=== PATIENT | female | born 1995 | race African-American/Black ===

== ENCOUNTER 2020-10-20 12:38 | Outpatient (REF) | payer MEDICAID, SELFPAY ==
--- NOTE | 2020-10-20 12:50 | XR_ITS ---
EXAMINATION: XR RIBS, RIGHT CLINICAL INFORMATION: Localized swelling, mass and lump, COMPARISON: None TECHNIQUE: PA chest and 3 views of the right ribs. FINDINGS: There is scoliosis of the thoracic spine convex right. There is no evidence of acute parenchymal disease, pneumothorax, or pleural effusion. Heart normal size. No evidence of pulmonary edema. No acute displaced right rib fracture is evident. No destructive bony lesion is seen. XR/XR ribs RT min 3V w CXR1V IMPRESSION: No acute parenchymal disease within the chest. No right rib abnormality appreciated.
== END 2020-10-20 12:39 | disposition home or self-care (01) ==
LOC: HO.XRAY 12:38
PROVIDERS: PCP General Practice; Visit Provider General Practice
DX: R22.2 Localized swelling, mass and lump, trunk (principal)
CPT/HCPCS: 71101

== ENCOUNTER 2020-10-25 16:39 | Outpatient (REF) | payer MEDICAID, SELFPAY ==
--- NOTE | 2020-10-25 | US_ITS ---
EXAMINATION: ULTRASOUND EXTREMITY NONVASCULAR CLINICAL INFORMATION: Palpable lump COMPARISON: None TECHNIQUE: Grayscale and color imaging of the soft tissues of the right flank using a linear transducer FINDINGS: There is a 5.7 x 1.2 x 5.1 cm iso to hypoechoic solid lesion with no vascularity just deep to the skin corresponding to palpable abnormality. Ultrasound appearance is suggestive of a lipoma. US/US extremity nonvascular IMPRESSION: Probable right flank soft tissue lipoma. If this is painful or increasing in size, additional imaging with CT or MRI with contrast would be recommended.
== END 2020-10-25 16:40 | disposition home or self-care (01) ==
LOC: HO.US 16:39
PROVIDERS: Visit Provider General Practice
DX: R22.2 Localized swelling, mass and lump, trunk (principal)
CPT/HCPCS: 76882

== ENCOUNTER → 2021-01-17 13:55 | Outpatient (BNVA) | payer MEDICAID, SELFPAY | PROVIDERS: PCP General Practice; Visit Provider Surgery | DX: D17.1 Benign lipomatous neoplasm of skin and subcutaneous tissue of trunk (principal) | CPT/HCPCS: 99202 ==

== ENCOUNTER 2021-02-18 08:36 | Day surgery (SDC) | payer MEDICAID, SELFPAY ==
[2021-02-11 19:55] VITALS: BMI 26.2
--- NOTE | 2021-02-16 09:33 | P.CONAN_ITS ---
Documented by User: Denise Hernandez 02/16/21 09:34 HPI - Anesthesia Eval Consult details Narrative: 25yo F for Right Excision of Flank Lipoma PMFSH Active Problems Active Problems: All Active Problems (Updated 02/11/21 @ 19:54 by Ekta Chavarria RN) Lipoma of abdominal wall (Acute) Past Medical History Medical History GERD (gastroesophageal reflux disease) Lipoma of abdominal wall Scoliosis Surgical History Surgical History History of appendectomy [place] teeth extracted Social History Social History Alcohol intake: never Smoking Status: Never smoker Second Hand Smoke Exposure: No Use of substances other than those prescribed or required for medical reasons: No Are you DNR?: No Advance Directives: No Advance Directives Information Provided: No Advance Directives on File: No Recently lost weight without trying: No Nutrition Risks: No Nutritional Risk Meds Allergies Allergy/AdvReac Type Severity Reaction Status Date / Time clarithromycin [From BIAXIN] Allergy Unknown RASH Verified 02/18/21 08:54 Home Medications Medication Instructions Recorded Confirmed Last Taken Type No Known Home Meds 01/17/21 01/17/21 Unknown History Exam Exam Date and Time: February 16, 2021 0933 Height,Weight and Vital Signs: Height 4 ft 11 in Weight 58.967 kg Assessment and Plan Assessment Anesthesia Assessment: Chart Reviewed Documented by User: Rhianna Aguilar 02/18/21 09:37 PMFSH Past Medical History Medical History GERD (gastroesophageal reflux disease) Lipoma of abdominal wall Scoliosis Surgical History Surgical History History of appendectomy [place] teeth extracted Social History Social History Alcohol intake: never Smoking Status: Never smoker Second Hand Smoke Exposure: No Use of substances other than those prescribed or required for medical reasons: No Are you DNR?: No Advance Directives: No Advance Directives Information Provided: No Advance Directives on File: No Recently lost weight without trying: No Nutrition Risks: No Nutritional Risk Meds Allergies Allergy/AdvReac Type Severity Reaction Status Date / Time clarithromycin [From BIAXIN] Allergy Unknown RASH Verified 02/18/21 08:54 Home Medications Medication Instructions Recorded Confirmed Last Taken Type No Known Home Meds 01/17/21 01/17/21 Unknown History Exam Airway Mallampati Class: II TM Dist: >3cm Neck ROM: Full Assessment and Plan Assessment Anesthesia Assessment: Anesthesia Plan Discussed and Chart Reviewed Final Anesthetic Review NPO: Yes ASA Class: II Final Preanesthetic Review: No Changes in Pt Med Stat, Meds/Allgs Chart Reviewed, Consent Obtained/Reviewed and Anes Risks/Benef Reviewed Patient Risk: Low Procedure Risk: Low Assessment/Block/Sedation in SS: Assess/Block/Sedation-SS Anesthetic Plan Anesthetic Plan: MAC: Disposition: Standard PACU
[2021-02-18 08:55] VITALS: BP 108/67; PULSE 72; RESP 16; TEMP 36.9; O2SAT 97
[2021-02-18 09:02] LABS: UPreg QC Valid YES; Urine Pregnancy NEGATIVE (NEGATIVE)
[2021-02-18] MEDS: Lactated Ringers 1,000 ML 100 ML IVCONT (09:11)
--- NOTE | 2021-02-18 10:40 | P.OP_ITS ---
Operative Note Operative Note Date of Service: 02/18/21 Narrative: Preop diagnosis: Large lipoma, right flank Postop diagnosis: The same Procedure: Excision of large lipoma right flank Surgeon: Hu Patiño MD [employer] Technician: Chris [employer] student The patient is a 25-year-old female with a large lipomatous mass in the right flank area. She wanted to proceed with excision under anesthesia in view of the size. She understood the technique of excision under anesthesia. She was aware of the risks, benefits, and alternatives. She was brought to the operating room placed in left lateral decubitus position under monitored anesthesia care. The area of the lipoma on the right flank was prepped and draped in the usual sterile fashion. A surgical time-out was done The patient received cefazolin 2 g IV preoperatively. I infiltrated the planned line of incision with lidocaine 1%. I made the incision transversely on the skin overlying the lipoma using a blade 15. This was carried down through the full thickness of the skin and subcutaneous fat with electrocautery. I continued to divide across the thick subcutaneous fat until we were able to visualize a lipomatous mass. This was then sharply dissected off of the rest of the subcutaneous layer and posteriorly with Metzenbaum scissors and electrocautery until this was delivered and sent as a specimen. This lipoma measured 7 cm x 5 cm. I irrigated the area of excision. I closed the subcutaneous layer with Dexon 3- 0 interrupted sutures. Skin closure was achieved with Dexon 4-0 subcuticular running sutures. Steri-Strips and dressings were applied.The incision was infiltrated with Marcaine 0.5% for postop analgesia. The procedure was then completed. The patient tolerated the procedure well. No complications were noted. Initial and final counts of sponges and instruments were correct. Estimated blood loss was about 2 cc The patient was then transferred to the recovery room with stable vital signs.
[2021-02-18 10:42] VITALS: BP 114/68; PULSE 78; RESP 16; TEMP 36.9; O2SAT 99
--- NOTE | 2021-02-18 10:45 | P.BOP_ITS ---
Brief Operative Note Date of Service: 02/18/21 Pre-op diagnosis: Lipoma right flank Post-op diagnosis: same Procedure: Excision of lipoma right flank Surgeon: Hu Patiño MD Anesthesia: MAC Was an Chief Executive Officer used for this Procedure?: No Estimated blood loss (mL): 2 Pathology: other (Lipoma) Condition: stable Disposition: PACU
[2021-02-18 10:57] VITALS: BP 124/90; PULSE 75; RESP 16; TEMP 36.9; O2SAT 97
== END 2021-02-18 11:37 | disposition home or self-care (01) ==
PROVIDERS: Nurse Practitioner; Visit Provider Surgery
PROC: (CPT 22903; principal; 2021-02-18 10:30)
DX: D17.5 Benign lipomatous neoplasm of intra-abdominal organs (principal); Z88.1 Allergy status to other antibiotic agents
CPT/HCPCS: 22903; 81025; 88304; J0690; J2250; J3010

== ENCOUNTER → 2021-03-02 10:31 | Outpatient (BNVA) | payer MEDICAID, SELFPAY | PROVIDERS: PCP General Practice; Visit Provider Surgery | DX: D17.1 Benign lipomatous neoplasm of skin and subcutaneous tissue of trunk (principal) | CPT/HCPCS: 99212 ==

== ENCOUNTER 2021-04-06 11:48 | Outpatient (REF) | payer MEDICAID, SELFPAY ==
--- NOTE | ~2021-04-06 | XR_ITS ---
EXAMINATION: XR SCOLIOSIS CLINICAL INFORMATION: Scoliosis. COMPARISON: None TECHNIQUE: A single view of the thoracolumbar spine is obtained. FINDINGS: There are no intrinsic vertebral anomalies. There is a convex left upper thoracic curve measured at 16 degrees (14 degrees on prior). There is a convex right lower thoracic curve measured at 26 degrees (28 degrees on prior). There is a convex left lumbar curve measured at 16 degrees (22 degrees on prior).. There is no significant pelvic tilt. XR/XR scoliosis survey IMPRESSION: Scoliosis without significant interval change.
== END 2021-04-06 11:49 | disposition home or self-care (01) ==
LOC: HO.XRAY 11:48
PROVIDERS: PCP General Practice; Visit Provider General Practice
DX: M41.129 Adolescent idiopathic scoliosis, site unspecified (principal)
CPT/HCPCS: 72082

== ENCOUNTER 2022-12-12 15:03 | Outpatient (REF) | payer MEDICAID, SELFPAY ==
--- NOTE | ~2022-12-12 | XR_ITS ---
EXAMINATION: XR CERVICAL SPINE CLINICAL INFORMATION: Neck pain COMPARISON: None TECHNIQUE: 6 views of the cervical spine, inclusive of flexion and extension views, were obtained. FINDINGS: Is normal cervical lordosis. The vertebral heights, alignment and disc heights are normal. No visible acute fracture, dislocation or subluxation seen. The neural foramina patent. The prevertebral soft tissues are normal. XR/XR cervical spine 5V IMPRESSION: Unremarkable cervical spine exam.
--- NOTE | ~2022-12-12 | XR_ITS ---
EXAMINATION: XR THORACOLUMBAR SPINE CLINICAL INFORMATION: Mid back pain, acute COMPARISON: None TECHNIQUE: 2 views. FINDINGS: There is moderate dextroscoliosis mid to lower dorsal spine. The vertebral heights and alignment is normal. No visible acute fracture, dislocation or subluxation seen. No acute fracture, dislocation or lytic process seen. The paravertebral soft tissues are normal. XR/XR thoracic spine 2V IMPRESSION: Moderate dextroscoliosis mid to lower dorsal spine. No visible acute fracture or dislocation seen.
== END 2022-12-12 15:04 | disposition home or self-care (01) ==
LOC: HO.XRAY 15:03
PROVIDERS: Visit Provider Emergency Medicine
DX: M54.2 Cervicalgia (principal); M54.89 Other dorsalgia
CPT/HCPCS: 72050; 72070